=== PATIENT | female | born 1985 | race Hispanic/Latino ===

== ENCOUNTER 2016-11-07 21:55 | Emergency (ER) | payer BC ==
[2016-11-07 22:12] VITALS: BP 112/71
== END 2016-11-08 00:40 | disposition left against medical advice (07) ==
LOC: ED 21:55
DX: G43.909 Migraine, unspecified, not intractable, without status migrainosus (principal); R06.00 Dyspnea, unspecified; J45.909 Unspecified asthma, uncomplicated; D64.9 Anemia, unspecified; F17.200 Nicotine dependence, unspecified, uncomplicated; Z53.21 Procedure and treatment not carried out due to patient leaving prior to being seen by health care provider

== ENCOUNTER 2018-08-24 10:58 | Outpatient (CLI) | payer BC ==
[2018-08-24 12:27] LABS: Hematocrit 26.7 % (30.3-42.9); Hemoglobin 8.2 gm/dl (10.1-14.3); Mean Corpuscular HGB Conc 31 % (30-34); Platelet Count 209 K/mm3 (140-440); Red Blood Count 3.84 M/mm3 (3.65-5.03); Red Cell Distribution Width 19.7 % (13.2-15.2)
[2018-08-24 12:33] LABS: Mean Corpuscular Volume 69 fl (79-97)
[2018-08-24 12:40] LABS: INR 0.9 (0.87-1.13)
[2018-08-24 12:54] LABS: Alanine Aminotransferase 9 units/L (7-56); Albumin 4.2 g/dL (3.9-5)
[2018-08-24 12:59] LABS: Bilirubin,Direct < 0.2 mg/dL (0-0.2)
--- NOTE | 2018-08-24 13:33 | Nuclear Medicine Report ---
HEPATOBILIARY SCAN: History: Abdominal pain. Following the injection of the radionuclide, serial scanning was obtained over the right upper quadrant. Initial imaging of the liver demonstrates a relatively normal activity pattern. Progressive concentration of the radionuclide in the bile ducts, with filling of both the gallbladder and small bowel, is identified within a normal time period. IMPRESSION: Normal biliary system.
== END 2018-08-24 10:59 | disposition home or self-care (01) ==
LOC: NM 10:58
DX: R10.9 Unspecified abdominal pain (principal); I10 Essential (primary) hypertension; J45.909 Unspecified asthma, uncomplicated
CPT/HCPCS: 36415; 78226; 80076; 85027; 85610; A9537

== ENCOUNTER 2018-10-08 08:16 | Outpatient (CLI) | payer BC ==
[2018-10-08] MEDS ORDERED: KINEVAC IV ONE (11:30)
--- NOTE | 2018-10-08 13:58 | Nuclear Medicine Report ---
Nuclear gallbladder scan with Kinevac: Following injection of radionuclide imaging for 30 minutes demonstrated early gallbladder filling of the gallbladder and biliary ducts with small bowel imaging at approximately 15 minutes. Following protocol injection of Kinevac at 30 minutes the patient usual symptoms were reproduced. A peak ejection fraction of 95% occurred approximately 15 minutes following injection. Impression: Patent biliary duct with 95% gallbladder ejection fraction.
== END 2018-10-08 08:17 | disposition home or self-care (01) ==
LOC: NM 08:16
DX: R10.9 Unspecified abdominal pain (principal); I10 Essential (primary) hypertension; J45.909 Unspecified asthma, uncomplicated; F17.200 Nicotine dependence, unspecified, uncomplicated
CPT/HCPCS: 78227; A9537; J2805

== ENCOUNTER 2018-10-16 08:16 | Day surgery (SDC) | payer BC ==
[~2018-10-16 08:16] MED LIST: NACL 0.9% 1000 ML 1,000 ML IV SCH
[2018-10-16] MEDS ORDERED: DIPRIVAN 10 MG/ML IV ONE ×2 (09:30→09:41)
[2018-10-16] MEDS ORDERED: WATER FOR IRRIG STERILE IR ONE (09:42)
--- NOTE | 2018-10-16 10:05 | History and Physical Report ---
HISTORY OF PRESENT ILLNESS: This is a 32-year-old white female, who has had multiple surgeries including colectomy for colon inertia, gastric sleeve because of morbid obesity. Lately, the patient has been having problems with dysphagia as well as some abdominal pain and possible associated peptic ulcer disease. She is status post gastric sleeve, and colectomy, also has a history of hepatitis C for which she has been treated with Harvoni and possible history of hypothyroidism. SOCIAL HISTORY: She admits to smoking, rarely drinks alcohol. FAMILY HISTORY: No cardiac issues. No flu shots. ALLERGIES: She has no known allergies. MEDICATIONS: Include baclofen, Percocet, Nexium, Neurontin. PHYSICAL EXAMINATION: GENERAL: She is afebrile. VITAL SIGNS: Blood pressure 110/64, pulse is 67, height is 5 feet 6 inches. Weight is 152 pounds. HEENT: Shows no JVD. CHEST: Clear to auscultation with some reduced breath sounds. CARDIOVASCULAR: Normal. ABDOMEN: She has surgical scars. Abdomen is soft. Bowel sounds present. EXTREMITIES: No pedal edema. NEUROLOGIC: She is otherwise alert and oriented. IMPRESSION: Dysphagia, abdominal pain, possible peptic ulcer disease, status post gastric sleeve, status post colectomy, history of hepatitis, chronic hepatitis C, which has been treated with Harvoni, and hypothyroidism. PLAN: The plan is to do an EGD with possible dilation and biopsies to be done at [facility] on 10/16/2018. The patient will also be checked for TSH, T3, T4, as well as vitamin B12, folic acid, and CBC. Patient was seen in the presence of AILYN Mayr. JOB# [id number] ELIEL/ROSMERY WRIGHTD
--- NOTE | 2018-10-16 10:06 | Procedure Note ---
Date of procedure: 10/16/18 Pre-op diagnosis: Dysphagia/ Abdominal Pain Post-op diagnosis: other Procedure: EGD with Biopsy Anesthesia: MAC Surgeon: SARAI JANG Estimated blood loss: minimal Pathology: list Specimen disposition: to lab Condition: stable Disposition: same day (Treat with Fluconazole and PPI. Avoid aspirin and aspirin related products for 4 days. Follow up in 1 to 2 weeks ([phone]).)
[2018-10-16 10:54] LABS: Basophils % (Auto) 0.7 % (0.0-1.8); Eosinophils # (Auto) 0.1 K/mm3 (0.0-0.4); Eosinophils % (Auto) 1.9 % (0.0-4.3); Hematocrit 27.4 % (30.3-42.9); Hemoglobin 8.4 gm/dl (10.1-14.3); Lymphocytes # (Auto) 1.8 K/mm3 (1.2-5.4); Lymphocytes % (Auto) 33.8 % (13.4-35.0); Mean Corpuscular HGB Conc 31 % (30-34); Monocytes # (Auto) 0.2 K/mm3 (0.0-0.8); Monocytes % (Auto) 4.4 % (0.0-7.3); Platelet Count 268 K/mm3 (140-440); Red Blood Count 4.23 M/mm3 (3.65-5.03); Red Cell Distribution Width 19.7 % (13.2-15.2)
[2018-10-16 10:55] LABS: Mean Corpuscular Volume 65 fl (79-97)
[2018-10-16 11:01] VITALS: BP 109/54
--- NOTE | 2018-10-16 11:27 | Operative Report ---
PROCEDURES: ESOPHAGOGASTRODUODENOSCOPY WITH BIOPSY. INDICATIONS FOR PROCEDURE: A 32-year-old white female who has lately been having dysphagia. She has a prior history of a gastric sleeve surgery for morbid obesity, also had subtotal colectomy done because of colonic inertia in the past. Lately, she has been having severe dysphagia as well as some abdominal pain and discomfort for which EGD was done. DESCRIPTION OF PROCEDURE: Procedure was done after getting informed consent with MAC anesthesia. Instrument was passed through the hypopharynx into the esophagus, which showed moderate whitish plaques in the esophagus suggestive possibly of Sienna esophagitis. The stomach showed evidence of surgery, status post gastric sleeve biopsy. There was some antral gastritis present. No ulcers were noted in the straight or the retroverted view. Biopsy was done from the gastric antrum, gastric body and angularis incisura. The pylorus is patent. The duodenum in the first and second portion appeared normal. Biopsy was done from the second part to rule out for possible celiac disease. ASSESSMENT: Dysphagia secondary to Sienna esophagitis, mild distal esophagitis, gastritis, status post gastric surgery, gastric sleeve, rule out celiac disease. There is minimal bleeding from the biopsy sites. No complications associated with the procedure. PLAN: Plan is to treat the patient with fluconazole, PPI and Bentyl and have the patient follow up in the office in 1-2 weeks' time, also to avoid aspirin and aspirin-related products for the next few days. RNMarge was in the room throughout the entirety of the procedure. JOB# [id number] ELIEL/ROSMERY
[2018-10-17] MEDS ORDERED: DIFLUCAN PO SCH (10:00)
[2018-10-17] MEDS ORDERED: PROTONIX PO SCH (10:00)
== END 2018-10-16 08:17 | disposition home or self-care (01) ==
LOC: GIO 08:16
DX: K29.50 Unspecified chronic gastritis without bleeding (principal); B37.81 Candidal esophagitis; F17.210 Nicotine dependence, cigarettes, uncomplicated; I10 Essential (primary) hypertension; E03.9 Hypothyroidism, unspecified; K20.9 Esophagitis, unspecified; F31.9 Bipolar disorder, unspecified; Z98.890 Other specified postprocedural states; Z79.899 Other long term (current) drug therapy
CPT/HCPCS: 36415; 43239; 81025; 82607; 82747; 84436; 84443; 84480; 85025; 88305; 88312; 88342; J2704; J7030

== ENCOUNTER 2018-12-18 09:09 | Day surgery (SDC) | payer BC ==
--- NOTE | 2018-12-18 10:05 | Anesthesia Consultation ---
Anesthesia Consult and Med Hx Date of service: 12/18/18 - Airway Anesthetic Teeth Evaluation: Good ROM Head & Neck: Adequate Mental/Hyoid Distance: Adequate Mallampati Class: Class II Intubation Access Assessment: Probably Good - Pre-Operative Health Status ASA Pre-Surgery Classification: ASA2 - Pulmonary Hx Smoking: Yes (1/4 p/day x 23 years) Hx Asthma: Yes - Cardiovascular System Hx Hypertension: Yes - Central Nervous System Hx Back Pain: Yes (s/p ALIF) - Gastrointestinal Hx Ulcer: No (s/p bowel resection) Hx Gastroesophageal Reflux Disease: Yes - Endocrine Hx Hypothyroidism: Yes - Hematic Hx Anemia: Yes - Other Systems Hx Substance Use: No (on prescription pain meds) Hx Cancer: No Hx Obesity: Yes (s/p gastric sleeve 15', lost 150 lbs)
--- NOTE | 2018-12-18 10:05 | Anesthesia Day of Surgery ---
Anesthesia Day of Surgery - Day of Surgery Patient Examined: Yes Patient H&P Reviewed: Yes Patient is NPO: Yes
[2018-12-18] MEDS ORDERED: VERSED ONE ×2 (10:07→10:40)
[2018-12-18] MEDS ORDERED: DIPRIVAN 10 MG/ML IV ONE ×4 (10:08→10:40)
--- NOTE | 2018-12-18 11:25 | Procedure Note ---
Date of procedure: 12/18/18 Pre-op diagnosis: Abdominal Pain/ H/O Gastric and Colon Surgery/ H/O Sienna Esophagitis Post-op diagnosis: other (No Sienna Esophagitis at present/ Mild Esophagitis/ Gastritis/ S/P Gastric Sleeve/ Partial Colon Resection/ Prep was poor to fair/ No evidence of Colitis or colon polyp or diverticular disease or Internal Hemorrhoids noted.) Procedure: EGD with Biopsy and Colonoscopy Anesthesia: [facility] [place] Surgeon: SARAI JANG Estimated blood loss: minimal Pathology: list Specimen disposition: to lab Condition: stable Disposition: same day (Treat with PPI,prn Bentyl and Rifaximin. Avoid aspirin and NSAID for 5 days and follow up in 1 to 2 weeks ([phone]).)
[2018-12-18 11:54] VITALS: BP 112/75
--- NOTE | 2018-12-18 12:05 | Operative Report ---
PROCEDURE: EGD with biopsy. INDICATIONS: A 33-year-old white female who has previously had severe Sienna esophagitis. She has lately been complaining of some GERD symptoms and was fearful that she may have recurrence of her Sienna esophagitis. EGD was done to assess for the problem. She also has a prior history of a gastric sleeve and has lost significant weight following the surgery, which was several years ago. DESCRIPTION OF PROCEDURE: The procedure was done after getting informed consent with MAC anesthesia. Instrument was passed through the hypopharynx into the esophagus, which did not show any evidence of Sienna esophagitis at present. Her prior history of Sienna esophagitis appears to have resolved. Stomach showed surgical changes consistent with gastric sleeve. There was antral gastritis noted. Biopsy was done from the gastric antrum as well as from the gastric body and angular incisura. The pylorus was patent. The duodenum in the first and second portion appeared normal. ASSESSMENT: History of Sienna esophagitis, which has resolved, status post gastric sleeve, gastritis, patent pylorus. There was no evidence of any peptic ulcer disease. There was minimal bleeding from the biopsy sites and no complications associated with the procedure. Plan is to treat the patient with PPI and have the patient follow up in the office in 1-2 weeks' time. A colonoscopy may also be done because of the persistence of her abdominal pain. Tigist ROBERTSON was in the room throughout the entirety of the procedure.. JOB# [id number] ELIEL/ROSMERY
--- NOTE | 2018-12-18 12:05 | Operative Report ---
INDICATIONS: A 33-year-old white female who has had a partial colon resection because of colon inertia. Colonoscopy was done because of abdominal pain. EGD was done prior to the colonoscopy, which had shown some gastritis. She had prior history of esophagitis which appears to have resolved. She is also status post gastric sleeve. Initial rectal exam was unremarkable. Colonoscopy was done and the instrument was passed up to the anastomotic site, which was at about 60 cm. The patient appears to have had a large portion of the colon removed and the new anastomosis. There were two blind pouch is noted at the resection site with an anastomosis with the small bowel that was noted. The colon visualization was fair, but the colon mucosa appeared normal. There was no evidence of any colitis, diverticular disease, or any colon polyps throughout the remnant of the colon and rectum did not show any internal hemorrhoids on the retroverted view. No biopsies were done. There was no bleeding or complications associated with the colonoscopy. ASSESSMENT: Abdominal pain, partly possibly secondary to small bowel bacterial overgrowth, status post partial colon resection. No colon polyps, colitis or diverticular disease or internal hemorrhoids noted. Prep was fair to poor. PLAN: Plan is to treat the patient with a course of antibiotic for possible underlying small intestinal bacterial overgrowth, may be empirically treat the patient with some Bentyl and PPI, have the patient avoid aspirin and aspirin-related products for the next few days and follow up in the office in 1-2 weeks' time. RN, Tigist Conde, was in the room throughout the entirety of the procedure. JOB# [id number] ELIEL/ROSMERY
[2018-12-18] MEDS ORDERED: NACL 0.9% 1000 ML 1,000 ML ONE (12:42)
--- NOTE | 2019-01-21 09:58 | History and Physical Report ---
HISTORY OF PRESENT ILLNESS: This is a 33-year-old white female who has had a gastric bypass surgery as well as had a colectomy done because of problems with chronic constipation in the past. She has been having some dyspeptic symptoms and has had EGD done previously because of Sienna esophagitis. She has come for a repeat EGD and possible colonoscopy done to assess for recurrence of her Sienna esophagitis and dysphagia and also to assess for any associated colitis. She has associated abdominal pain. ALLERGIES: No known allergies. SOCIAL HISTORY: Admits to smoking; on occasion, drinks alcohol. PAST MEDICAL HISTORY: Significant for gastric bypass, history of partial colectomy. PHYSICAL EXAMINATION: VITAL SIGNS: Otherwise are stable. HEENT: Shows no JVD. LUNGS: Shows reduced breath sounds. CARDIOVASCULAR: Normal. ABDOMEN: Shows epigastric tenderness. EXTREMITIES: No pedal edema. NEUROLOGIC: The patient is otherwise alert and oriented. ASSESSMENT: Abdominal pain, dysphagia, prior history of Sienna esophagitis, history of partial colon resection, possible colitis. PLAN: Plan is to do an EGD and a colonoscopy for further assessment. JOB# [id number] ELIEL/ROSMERY
== END 2018-12-18 12:00 | disposition home or self-care (01) ==
LOC: GIO 09:09
DX: K21.0 Gastro-esophageal reflux disease with esophagitis (principal); R10.9 Unspecified abdominal pain; J45.909 Unspecified asthma, uncomplicated; I10 Essential (primary) hypertension; E03.9 Hypothyroidism, unspecified; F31.9 Bipolar disorder, unspecified; E66.9 Obesity, unspecified; F17.210 Nicotine dependence, cigarettes, uncomplicated; Z68.25 Body mass index [BMI] 25.0-25.9, adult; Z79.899 Other long term (current) drug therapy; Z72.89 Other problems related to lifestyle; Z98.890 Other specified postprocedural states
CPT/HCPCS: 43239; 45378; 88305; 88342; J2250; J2704; J7030

== ENCOUNTER 2019-04-02 10:54 | Day surgery (SDC) | payer BC ==
[2019-04-02] MEDS ORDERED: LIDOCAINE MPF (2%) 20 MG/1 ML VIAL 5 ML ONE (12:00)
[2019-04-02] MEDS ORDERED: SODIUM CHLORIDE 0.9% 1000 ML 1,000 ML ONE (12:01)
[2019-04-02] MEDS ORDERED: PROPOFOL 200 MG/20 ML VIAL IV ONE ×2 (12:09)
[2019-04-02] MEDS ORDERED: SODIUM CHLORIDE 0.9% 1000 ML 1,000 ML IV SCH (12:12)
[2019-04-02] MEDS ORDERED: WATER FOR IRRIG STERILE 250 ML BOTTLE IR ONE (12:23)
--- NOTE | 2019-04-02 12:23 | Anesthesia Consultation ---
Anesthesia Consult and Med Hx Date of service: 04/02/19 - Airway Anesthetic Teeth Evaluation: Good ROM Head & Neck: Adequate Mental/Hyoid Distance: Adequate Mallampati Class: Class II Intubation Access Assessment: Good - Pre-Operative Health Status ASA Pre-Surgery Classification: ASA2 Proposed Anesthetic Plan: MAC - Pulmonary Hx Smoking: Yes (1/4 p/day x 23 years) Hx Asthma: Yes Hx Respiratory Symptoms: No SOB: No COPD: No Home Oxygen Therapy: No Hx Sleep Apnea: No - Cardiovascular System Hx Hypertension: No Hx Coronary Artery Disease: No Hx Heart Attack/AMI: No Hx Angina: No Hx Percutaneous Transluminal Coronary Angioplasty (PTCA): No Hx Cardia Arrhythmia: No Hx Pacemaker: No Hx Internal Defibrillator: No Hx Valvular Heart Disease: No Hx Heart Murmur: No Hx Peripheral Vascular Disease: No - Central Nervous System Hx Neuromuscular Disorder: No Hx Seizures: No CVA: No Hx Back Pain: Yes (s/p ALIF) Hx Psychiatric Problems: Yes (anexity/depression) - Gastrointestinal Hx Ulcer: No (s/p bowel resection) Hx Gastroesophageal Reflux Disease: Yes - Endocrine Hx Renal Disease: No Hx End Stage Renal Disease: No Hx Cirrhosis: No Hx Liver Disease: No Hx Insulin Dependent Diabetes: No Hx Non-Insulin Dependent Diabetes: No Hx Thyroid Disease: No Hx Hypothyroidism: No Hx Hyperthyroidism: No - Hematic Hx Anemia: Yes - Other Systems Hx Alcohol Use: No Hx Substance Use: No (on prescription pain meds) Hx Cancer: No Hx Obesity: Yes (s/p gastric sleeve 15', lost 150 lbs)
--- NOTE | 2019-04-02 12:27 | Anesthesia Day of Surgery ---
Anesthesia Day of Surgery - Day of Surgery Patient Examined: Yes Patient H&P Reviewed: Yes Patient is NPO: Yes Beta Blockers: No
--- NOTE | 2019-04-02 12:56 | Procedure Note ---
Date of procedure: 04/02/19 Pre-op diagnosis: Dysphagia/GERD Post-op diagnosis: other (P/H/O Sienna Esophagitis (none now)/ R/O Eosinophilc Esophagitis/ No Esophageal Stenosis noted/ s/p Gastric Sleeve/Gastritis/ Patent Pylorus) Procedure: EGD with Biopsy Anesthesia: [facility] Surgeon: SARAI JANG Estimated blood loss: minimal Pathology: list Specimen disposition: to lab Condition: stable Disposition: observation (Treat PPI, avoid aspirin and NSAID for 4 days; otherwise resume home meidciation and follow up in 1 to 2 weeks ([phone]).)
[2019-04-02 13:24] VITALS: BP 114/56
--- NOTE | 2019-04-02 13:40 | Operative Report ---
PROCEDURE: Esophagogastroduodenoscopy with biopsy. INDICATIONS: The patient is a 33-year-old white female who has a history of a gastric bypass, status post gastric sleeve, previously has had severe Sienna esophagitis lately, had been having some GERD symptoms and dysphagia. EGD was done to make sure there was not any recurrence of the Sienna esophagitis. DESCRIPTION OF PROCEDURE: Procedure was done after getting informed consent. With MAC anesthesia, instrument was passed through the hypopharynx into the esophagus, which did not show any evidence of Sienna esophagitis. Biopsy was done from the midesophagus to rule out for possible eosinophilic esophagitis. There was no esophageal stenosis noted and no dilation was required. The stomach showed evidence of gastric sleeve surgery with some antral gastritis. Biopsy was done from the gastric antrum and the gastric body to rule out for H. pylori and atrophic gastritis. The pylorus was patent. The duodenum in the first and the second portion appeared normal. ASSESSMENT: History of Sienna esophagitis, none now; history of dysphagia and gastroesophageal reflux disease symptoms. There is no evidence of any esophageal stenosis, rule out eosinophilic esophagitis, gastritis, status post gastric sleeve. PLAN: To treat the patient with PPI, have the patient avoid aspirin and aspirin-related products for the next few days. Await for the biopsy results and have the patient follow up in the office in 1-2 weeks' time. Procedure was done in the GI lab with assistance of the GI lab team, which included Maddison Mary and Ernesto obando as well as the assistance of anesthesia. JOB# [id number] ELIEL/ROSMERY
== END 2019-04-02 13:29 | disposition home or self-care (01) ==
LOC: GIO 10:54
DX: K21.0 Gastro-esophageal reflux disease with esophagitis (principal); K31.89 Other diseases of stomach and duodenum; R13.10 Dysphagia, unspecified; B37.81 Candidal esophagitis; F17.210 Nicotine dependence, cigarettes, uncomplicated; J45.909 Unspecified asthma, uncomplicated; E66.9 Obesity, unspecified; F31.9 Bipolar disorder, unspecified; Z79.899 Other long term (current) drug therapy; Z68.25 Body mass index [BMI] 25.0-25.9, adult; Z98.891 History of uterine scar from previous surgery; Z98.890 Other specified postprocedural states; Z86.2 Personal history of diseases of the blood and blood-forming organs and certain disorders involving the immune mechanism
CPT/HCPCS: 43239; 81025; 88305; 88342; J2704; J7030

== ENCOUNTER 2020-02-18 09:26 | Day surgery (SDC) | payer BC ==
[~2020-02-18 09:26] MED LIST changes: -NACL 0.9% 1000 ML 1,000 ML IV SCH; +SODIUM CHLORIDE 0.9% 1000 ML 1,000 ML IV SCH
[2020-02-18] MEDS ORDERED: LIDOCAINE MPF (2%) 20 MG/1 ML VIAL 5 ML ONE (09:30)
--- NOTE | 2020-02-18 11:00 | Anesthesia Consultation ---
Anesthesia Consult and Med Hx Date of service: 02/18/20 - Airway Anesthetic Teeth Evaluation: Good ROM Head & Neck: Adequate Mental/Hyoid Distance: Adequate Mallampati Class: Class II Intubation Access Assessment: Probably Good - Pulmonary Exam CTA: Yes - Cardiac Exam Cardiac Exam: RRR - Pre-Operative Health Status ASA Pre-Surgery Classification: ASA3 Proposed Anesthetic Plan: MAC - Pulmonary Hx Smoking: Yes (1/4 p/day x 23 years) Hx Respiratory Symptoms: No Hx Sleep Apnea: No - Cardiovascular System Hx Hypertension: No Hx Heart Attack/AMI: No Hx Percutaneous Transluminal Coronary Angioplasty (PTCA): No Hx Cardia Arrhythmia: No - Central Nervous System CVA: No Hx Back Pain: Yes Hx Psychiatric Problems: Yes (anexity/depression) - Gastrointestinal Hx Gastroesophageal Reflux Disease: Yes - Endocrine Hx Renal Disease: No Hx Liver Disease: No Hx Insulin Dependent Diabetes: No Hx Non-Insulin Dependent Diabetes: No Hx Thyroid Disease: No - Other Systems Hx Substance Use: Yes (cocaine pos UDS 2018; patient denies recent use) Hx Obesity: Yes (BMI 30 s/p gastric sleeve) - Additional Comments Anesthesia Medical History Comments: No hx anesthetic complications.
--- NOTE | 2020-02-18 11:00 | Anesthesia Day of Surgery ---
Anesthesia Day of Surgery - Day of Surgery Patient Examined: Yes Patient H&P Reviewed: Yes Patient is NPO: Yes
[2020-02-18] MEDS ORDERED: propofoL 200 MG/20 ML VIAL IV ONE ×2 (12:27)
--- NOTE | 2020-02-18 12:53 | Procedure Note ---
Date of procedure: 02/18/20 Pre-op diagnosis: GERD Post-op diagnosis: other (Mild To Moderate Erosive Esophagitis/Mild Sienna Esophagitis/ S/P Gastric Sleeve/Gastritis/R/o Celiac Disease/ R/o Eosinophilic Esophagitis) Procedure: EGD with Biopsy Anesthesia: [facility] [place] Surgeon: SARAI JANG Estimated blood loss: minimal Pathology: list Specimen disposition: to lab Condition: stable Disposition: same day (Treat with PPI and Fluconazole. Avoid aspirin and NSAID for 4 days; otherwise resume home medication. Follow up in 1 to 2 weeks ([phone]).)
--- NOTE | 2020-02-18 12:54 | Operative Report ---
PROCEDURE: Esophagogastroduodenoscopy with biopsy. INDICATIONS: This is a 34-year-old white female who has a prior history of gastric sleeve resection, also has had status post colectomy for chronic constipation, has had prior history of Sienna esophagitis, lately has been having some GERD symptoms with [id number] GERD symptoms. EGD was done to see for any associated upper GI pathology. DESCRIPTION OF PROCEDURE: The procedure was done after getting informed consent with MAC anesthesia. Instrument was passed through the hypopharynx into the esophagus, which showed some evidence of mild Sienna esophagitis. Biopsy was done from the mid esophagus to assess for eosinophilic esophagitis as well as for Sienna esophagitis. There was distal erosive esophagitis present, which was [id number]. Biopsy was also done from that area to assess for the severity of the erosive esophagitis. The patient is status post gastric sleeve surgery. The pylorus was patent. The duodenum in the first and second portion appeared normal. Biopsy was done from the second part to rule out for possible celiac disease and additional biopsy was done from the gastric antrum and the gastric body to rule out for H. pylori and atrophic gastritis. ASSESSMENT: Gastroesophageal reflux disease symptoms, mild to moderate erosive esophagitis, mild Sienna esophagitis, rule out eosinophilic esophagitis, gastritis, status post gastric sleeve, patent pylorus, rule out celiac disease. PLAN: To await for the biopsy results. Treat the patient with PPI and fluconazole. Have the patient to avoid aspirin and aspirin-related products for the next few days and follow up in the office in 1-2 weeks' time. The procedure was done in the GI lab with assistance of the GI lab team, which included Evelina ROBERTSON; Shante obando and with assistance of anesthesia. JOB# [id number] ELIEL/ROSMERY
[2020-02-18 13:28] VITALS: BP 106/37
--- NOTE | 2020-02-18 14:09 | Post Anesthesia Evaluation ---
- Post Anesthesia Evaluation Patient Participated: Yes Airway Patent: Yes Stable Respiratory Function: Yes Nausea/Vomiting: No Temp > 96.8F: Yes Pain Manageable: Yes Adequeate Hydration: Yes Anesthesia Complications: No
== END 2020-02-18 13:45 | disposition home or self-care (01) ==
LOC: GIO 09:26
DX: K21.0 Gastro-esophageal reflux disease with esophagitis (principal); K29.70 Gastritis, unspecified, without bleeding; B37.81 Candidal esophagitis; F31.9 Bipolar disorder, unspecified; E66.9 Obesity, unspecified; Z79.899 Other long term (current) drug therapy; F17.210 Nicotine dependence, cigarettes, uncomplicated; Z98.891 History of uterine scar from previous surgery; Z98.890 Other specified postprocedural states; Z68.30 Body mass index [BMI] 30.0-30.9, adult
CPT/HCPCS: 43239; 88305; 88342; J2704; J7030